=== PATIENT | female | born 1950 | race Caucasian/White ===

== ENCOUNTER 2018-05-06 10:30 | Outpatient (CLI) | payer OTHER, SELFPAY ==
[2018-05-06 11:46] LABS: Anion Gap 7.9 mmol/L (3-11); BUN 16 mg/dL (7-18); CO2 32.1 mmol/L (21.0-32.0); CREATININE 0.87 mg/dL (0.55-1.02); Calcium 9.4 mg/dL (8.5-10.1); Chloride 101 mmol/L (98-107); Cholesterol 252 mg/dL (50-200); Glucose 90 mg/dL (70-100); HDL Cholesterol 86 mg/dL (40-60); LDL CHOLESTEROL 147 mg/dL (<100); Potassium 4.2 mmol/L (3.5-5.1); Sodium 141 mmol/L (136-145); Triglyceride 48 mg/dL (30-150)
== END 2018-05-06 10:50 ==
PROVIDERS: PCP Nurse Practitioner Family; Visit Provider Nurse Practitioner Family
DX: E78.5 Hyperlipidemia, unspecified (principal); I10 Essential (primary) hypertension
CPT/HCPCS: 36415; 80048; 80061; 83721

== ENCOUNTER 2018-11-24 01:15 | Outpatient (CLI) | payer OTHER, SELFPAY ==
--- NOTE | 2018-11-24 16:05 | DI.MAMMO_ITS ---
SYMPTOM/DIAGNOSIS: SCREENING Z12.31 MAMMOGRAMS: Mammograms were interpreted according to the usual protocol including computer analysis with CAD system, tomosynthesis and C view imaging. Comparison with prior examination. No suspicious masses or microcalcifications are seen. There is no definite evidence of malignancy. Breast density category B. Asymmetric breast tissue is seen in the posterior upper right breast only on the medial lateral oblique view. This area should be further evaluated with spot compression view. Ultrasound may be indicated at that time. IMPRESSION: Category 0. Additional views of the right breast as described above. Breast density category B. . MQSA ASSESSMENT OF FINDINGS: Incomplete: Needs additional imaging evaluation. Category 0. Patient will receive a letter notifying them of these results. BI-RADS category B. There are scattered areas of fibroglandular density.
== END 2018-11-24 01:35 ==
PROVIDERS: PCP Nurse Practitioner Family; Visit Provider Nurse Practitioner Family
DX: Z12.31 Encounter for screening mammogram for malignant neoplasm of breast (principal); R92.8 Other abnormal and inconclusive findings on diagnostic imaging of breast
CPT/HCPCS: 77063; 77067

== ENCOUNTER 2018-11-25 16:23 | Outpatient (CLI) | payer OTHER, SELFPAY ==
[2018-11-27 14:04] LABS: Fecal Immunochemical Test Negative (Negative)
== END 2018-11-25 16:43 ==
PROVIDERS: PCP Nurse Practitioner Family; Visit Provider Nurse Practitioner Family
DX: I10 Essential (primary) hypertension (principal); E78.5 Hyperlipidemia, unspecified; Z12.11 Encounter for screening for malignant neoplasm of colon
CPT/HCPCS: 82274

== ENCOUNTER 2018-12-01 01:53 | Outpatient (CLI) | payer OTHER, SELFPAY ==
--- NOTE | 2018-12-01 14:00 | DI.COMBO_ITS ---
SYMPTOMS/DIAGNOSIS: F/U MAMMO, ASYMMETRIC BREAST TISSUE SEEN IN POSTERIOR UPPER RT BREAST ADDITIONAL VIEWS OF THE RIGHT BREAST AND RIGHT BREAST ULTRASOUND: Additional images are interpreted according to the usual protocol including tomosynthesis and 2D imaging. Additional views of the right breast fail to show a persistent discrete mass. A right breast ultrasound was performed. The upper inner and upper outer quadrants were evaluated sonographically. No suspicious cystic or solid masses are seen. IMPRESSION: No evidence for malignancy. Yearly mammography is recommended. Category I. Breast density B. The findings were discussed with the patient on the date of the examination. SA ASSESSMENT OF FINDINGS: Negative. Category 1. Patient will receive a letter notifying them of these results. BI-RADS category B. There are scattered areas of fibroglandular density.
== END 2018-12-01 02:13 ==
PROVIDERS: PCP Nurse Practitioner Family; Visit Provider Nurse Practitioner Family
DX: Z12.31 Encounter for screening mammogram for malignant neoplasm of breast (principal); R92.8 Other abnormal and inconclusive findings on diagnostic imaging of breast; N64.59 Other signs and symptoms in breast
CPT/HCPCS: 76642; 77063; 77067

== ENCOUNTER 2020-03-26 00:26 | Outpatient (CLI) | payer OTHER, SELFPAY ==
--- NOTE | 2020-03-26 07:15 | DI.MAMMO_ITS ---
EXAM: MAMMO SCREENING CLINICAL HISTORY: screening,Z12.39 TECHNIQUE: Bilateral full field digital CC and MLO mammographic images were obtained with 3D tomosyn thesis and utilizing computer aided detection (CAD). COMPARISON: Available for comparison. FINDINGS: Masses/Architectural Distortion: There is a focal asymmetry in the retroareolar region of the right b reast seen on the craniocaudad view. It is more prominent compared to the prior examination. Microcalcifications: No suspicious pleomorphic-type are seen. Skin Thickening/Nipple Retraction: None. IMPRESSION: 1. Focal asymmetry in the retroareolar region of the right breast on the CC view. 2. Additional evaluation with a spot compression view is recommended. Ultrasound may be indicated at that time. BI-RADS Category 0 - Assessment Incomplete: Need additional imaging evaluation Breast Density - Category B - Scattered areas of fibroglandular density Breast density category C or D implies that the patient has dense breast tissue. Dense breast tissue is very common and is not abnormal but dense breast tissue can make it harder to find cancer on a ma mmogram. Also, dense breast tissue may increase their breast cancer risk. This information about the result of the mammogram report was provided to the patient to raise their awareness. Use this report when you speak with the patient about their risks for breast cancer, which includes their family hist ory. At that time, you may recommend for more screening tests (Ultrasound or MRI) as they might be us eful based on their risk. A negative radiographic report should not delay biopsy if a dominant or clinically suspicious mass is present. Up to ten percent of cancers are not identified on mammography. A negative report may reinforce clinical impression. Adenosis and dense breasts may obscure an underlying neoplasm. False positive reports average 6 to 10%. Patient will receive a letter notifying them of these results.
== END 2020-03-26 00:46 ==
PROVIDERS: PCP Nurse Practitioner Family; Visit Provider Nurse Practitioner Family
DX: Z12.31 Encounter for screening mammogram for malignant neoplasm of breast (principal); R92.8 Other abnormal and inconclusive findings on diagnostic imaging of breast
CPT/HCPCS: 77063; 77067

== ENCOUNTER 2020-03-26 02:18 | Outpatient (CLI) | payer OTHER, SELFPAY ==
[2020-03-26 13:05] LABS: Anion Gap 6.2 mmol/L (3-11); BUN 17 mg/dL (7-18); CO2 31.8 mmol/L (21.0-32.0); CREATININE 0.81 mg/dL (0.55-1.02); Calcium 8.9 mg/dL (8.5-10.1); Calculated LDL 175 mg/dL (<100); Chloride 102 mmol/L (98-107); Cholesterol 262 mg/dL (<200); Glucose 92 mg/dL (74-106); HDL Cholesterol 67 mg/dL (40-60); Sodium 140 mmol/L (136-145); Triglyceride 104 mg/dL (<150)
== END 2020-03-26 02:38 ==
PROVIDERS: PCP Nurse Practitioner Family; Visit Provider Nurse Practitioner Family
DX: I10 Essential (primary) hypertension (principal); E78.5 Hyperlipidemia, unspecified
CPT/HCPCS: 36415; 80048; 80061

== ENCOUNTER 2020-04-03 01:18 | Outpatient (CLI) | payer OTHER, SELFPAY ==
--- NOTE | 2020-04-03 | DI.MAMMO_ITS ---
EXAM: MG MAMMO SCREEN CALL BACK UNI CLINICAL HISTORY: F/U MAMMO, FOCAL ASYMMETRY RT BREAST TECHNIQUE: Spot compression views and tomographic imaging were performed. COMPARISON: 2009 through the recent exam of 26 March 2020. FINDINGS: The breasts are composed of scattered fibroglandular densities, Breast Density category B. No suspicious masses or suspicious microcalcifications are seen. No persistent abnormality is seen on the additional views performed. The findings are consistent wit h overlying fibroglandular tissue. There has been no significant change from prior exams. IMPRESSION: BI-RADS Category 1, Negative Yearly screening mammography is recommended. Breast Density - Category B, scattered fibroglandular densities.
== END 2020-04-03 01:38 ==
PROVIDERS: PCP Nurse Practitioner Family; Visit Provider Nurse Practitioner Family
DX: R92.8 Other abnormal and inconclusive findings on diagnostic imaging of breast (principal)
CPT/HCPCS: 77063; 77067

== ENCOUNTER 2020-05-16 03:03 | Outpatient (CLI) | payer OTHER, SELFPAY ==
[2020-05-16 13:47] LABS: ALT 21 U/L (14-59); AST 18 U/L (15-37); Albumin 3.7 g/dL (3.4-5.0); Alkaline Phosphatase 105 U/L (46-116); Bilirubin, Direct 0.11 mg/dL (0.00-0.20); Bilirubin, Total 0.6 mg/dL (0.2-1.0); Total Protein 7.1 g/dL (6.4-8.2)
== END 2020-05-16 03:04 | disposition home or self-care (01) ==
LOC: LBO 03:03
PROVIDERS: PCP Nurse Practitioner Family; Visit Provider Nurse Practitioner Family
DX: Z51.81 Encounter for therapeutic drug level monitoring (principal); I10 Essential (primary) hypertension; E78.5 Hyperlipidemia, unspecified
CPT/HCPCS: 36415; 80076

== ENCOUNTER → 2021-09-11 01:58 | Outpatient (CLI) | payer MEDICARE, SELFPAY ==
--- NOTE | 2021-09-11 10:05 | DI.RAD_ITS ---
Exam(s) XR FOOT LT COMPLETE EXAM: XR FOOT LT COMPLETE CLINICAL HISTORY: Pain and swelling, L proximal phalange,ankle swelling, m25.473,effusion. TECHNIQUE: 2D digital imaging was performed. COMPARISON: No exams were available for comparison FINDINGS: 3 views There is no evidence of fracture nor diastasis of the Lisfranc joint. Hallux valgus noted. Also mul tilevel degenerative changes at the articulations between the metatarsal bases and cuneiforms and cub oid. Also degenerative changes at the articulation between the navicular and the middle-medial [place] form bones. Prominent inferior calcaneal spur is noted as is some calcification in the plantar fasci a at this level. Mild pes planus. IMPRESSION: Degenerative changes. No fractures evident. DATA REPOSITORY: RADIATION DOSE DELIVERED:
== END ==
PROVIDERS: PCP Nurse Practitioner Family; Visit Provider Family Medicine
DX: M25.472 Effusion, left ankle (principal); M25.572 Pain in left ankle and joints of left foot
CPT/HCPCS: 73630

== ENCOUNTER → 2021-09-26 02:27 | Outpatient (CLI) | payer MEDICARE, SELFPAY ==
--- NOTE | 2021-09-26 07:45 | DI.RAD_ITS ---
Exam(s) XR ANKLE LT COMPLETE EXAM: XR ANKLE LT COMPLETE CLINICAL HISTORY: Evaluate for stress fracture, ankle pain lt, M25.572 TECHNIQUE: 2D digital imaging was performed. Three views. COMPARISON: CR XR FOOT LT COMPLETE from 09/11/2021 FINDINGS: BONES: No acute fracture is present. No bony destructive lesion is seen. JOINTS:The ankle mortise is normally aligned. Prominent spurring from the malleoli and distal tibia. Prominent heel spurs. SOFT TISSUE: Prominent swelling. IMPRESSION: Degenerative changes. Heel spurs. Soft tissue swelling. No visible fracture. DATA REPOSITORY: RADIATION DOSE DELIVERED:
== END ==
PROVIDERS: PCP Nurse Practitioner Family; Visit Provider Family Medicine
DX: M19.072 Primary osteoarthritis, left ankle and foot (principal); M79.89 Other specified soft tissue disorders; M77.32 Calcaneal spur, left foot
CPT/HCPCS: 73610

== ENCOUNTER 2021-10-25 09:04 | Outpatient (CLI) | payer MEDICARE, SELFPAY ==
--- NOTE | 2021-10-25 08:45 | DI.RAD_ITS ---
Exam(s) XR ELBOW RT LIMITED EXAM: XR ELBOW RT LIMITED CLINICAL HISTORY: eval R elbow mass. TECHNIQUE: 2D digital imaging was performed. Two views. COMPARISON: No exams were available for comparison FINDINGS: BONES: No acute fracture is present. No bony destructive lesion is seen. There is a prominent spur a t the posterior olecranon at the triceps insertion. There is mild spurring at the epicondyles and co ronoid process. JOINTS: The elbow is normally aligned. No joint effusion is seen. SOFT TISSUE: There is a large coarse soft tissue calcification posterior to the proximal radius and ulna. There is no adjacent bony erosion. There are no suspicious features. IMPRESSION: Prominent olecranon spur. Posterior soft tissue calcification DATA REPOSITORY: RADIATION DOSE DELIVERED:
== END 2021-10-25 09:05 | disposition home or self-care (01) ==
LOC: DIORS 09:05
PROVIDERS: PCP Nurse Practitioner Family; Visit Provider Student in an Organized Health Care Education/Training Program
DX: R22.31 Localized swelling, mass and lump, right upper limb (principal); M25.521 Pain in right elbow; E83.59 Other disorders of calcium metabolism; G56.01 Carpal tunnel syndrome, right upper limb
CPT/HCPCS: 99203; 73070

== ENCOUNTER 2021-11-01 11:01 | Outpatient (CLI) | payer MEDICARE, SELFPAY ==
--- NOTE | 2021-11-01 10:15 | DI.RAD_ITS ---
Exam(s) XR ANKLE LT 2V EXAM: XR ANKLE LT 2V CLINICAL HISTORY: eval L posterior tibial tendon - bony flatfoot TECHNIQUE: COMPARISON: CR XR ANKLE LT COMPLETE from 09/26/2021 FINDINGS: Two weight-bearing views were obtained. The ankle mortise appears fairly well maintained except for slight cartilaginous joint space narrowing apparent on the lateral view at the tibiotalar joint. The re are moderate hypertrophic marginal osteophytes at multiple sites involving all joints of the ankle . Subtalar joints appear fairly well preserved. Note is again made of apparent flatfoot deformity. Calcaneal enthesophytes noted at Achilles and plantar fascia attachments. IMPRESSION: Degenerative changes as described above, associated with flatfoot deformity as noted on prior imaging . RADIATION DOSE DELIVERED: Total DLP
== END 2021-11-01 11:02 | disposition home or self-care (01) ==
LOC: DIORS 11:01
PROVIDERS: PCP Nurse Practitioner Family; Referring Provider Nurse Practitioner Family; Visit Provider Student in an Organized Health Care Education/Training Program
DX: M21.42 Flat foot [pes planus] (acquired), left foot (principal); S86.112A Strain of other muscle(s) and tendon(s) of posterior muscle group at lower leg level, left leg, initial encounter; X58.XXXA Exposure to other specified factors, initial encounter; M76.822 Posterior tibial tendinitis, left leg
CPT/HCPCS: 99213; 73600

== ENCOUNTER 2021-11-25 03:36 | Outpatient (CLI) | payer MEDICARE, SELFPAY ==
[2021-11-25 12:47] LABS: Source Nasal/Nares
[2021-11-25 15:10] LABS: COVID-19 PCR Negative (Negative)
== END 2021-11-25 03:37 | disposition home or self-care (01) ==
LOC: LBO 03:36
PROVIDERS: PCP Nurse Practitioner Family; Visit Provider Student in an Organized Health Care Education/Training Program
DX: Z20.822 Contact with and (suspected) exposure to COVID-19 (principal)
CPT/HCPCS: 87635

== ENCOUNTER 2021-11-27 11:12 | Day surgery (SDC) | payer MEDICARE, SELFPAY ==
--- NOTE | 2021-11-27 09:50 | W.PM.DSUDISC ---
Discharge Plan Disposition Patient Disposition: HOME Condition: Good Discharge Details Reason For Visit: Right elbow tumoral calcinosis Attending Provider: Rogelio Rocha Primary Care Provider: Pura Henry Home Meds and New Rx's Prescriptions: New acetaminophen 500 mg tablet 500 mg PO Q6H PRN (Reason: pain) Qty: 60 2RF Continued (DME) Custom Johnna Brace See Rx Instructions .Route .MEDSUPPLY Qty: 1 0RF Rx Instructions: Please fit and fabricate for a custom AFO or Johnna style brace for severe posterior tibial tendon dysfunction of the left foot/ankle. Due to habitus and edema she is unable to tolerate gpd-gug-[id number] braces. lorazepam 0.5 MG tablet 0.5 mg PO PRIOR TO FLYING Qty: 4 Rx Instructions: Take as directed before flying. amoxicillin 250 MG capsule 250 mg PO ONCE Label Comments: 04/28/16 Pt reports she take 250 mg x's 4 OD for dentists appointments as she has had a knee replacement in 2003. atorvastatin 20 mg tablet 20 mg PO DAILY Qty: 90 3RF atenolol 50 mg tablet 50 mg PO DAILY Qty: 90 3RF Rx Instructions: DX: BLOOD PRESSURE hydrochlorothiazide 25 mg tablet 25 mg PO DAILY Qty: 90 3RF Rx Instructions: DX: BLOOD PRESSURE losartan 50 mg tablet See Rx Instructions .ROUTE .COMPLEX Qty: 90 3RF Dose Instruction: TAKE 1 TABLET DAILY Rx Instructions: TAKE 1 TABLET DAILY Discontinued acetaminophen [Tylenol] 325 mg capsule 325 mg PO ONCE PRN Discharge Instructions Additional Instructions: Elbow Tumoral Calcinosis Excision Discharge Instructions Activity: Gentle motion of the elbow, hand, wrist, and fingers is okay and encouraged after the first few days, but no repetitive activities nor heavy lifting. You may apply ice. Medications: - You should take Tylenol as needed for pain - a prescription has been sent in. Dressings: - The initial surgical dressing should stay in place for 3 days. It may then be removed and kept clean and dry. You should cover with a light gauze dressing. - You may shower after 3 days and get the wound wet. Follow-up: 10 days Referrals: Rogelio Rocha MD [ [facility]YSICIAN] - Activity:: Elevate Remove Dressings/Wound Care:: Do Not Remove Shower/Bathe:: Cover Diet:: As Tolerated Discharge Orders Discharge Orders: Discharge Order (Routine); Ordered 11/27/21 Ordered By: Samara Lopez
[2021-11-27 11:24] VITALS: BP 185/82; PULSE 55; RESP 18; TEMP 36.8; O2SAT 99
[2021-11-27] MEDS: Lactated Ringers 1,000 ML 80 ML IV (12:07)
--- NOTE | 2021-11-27 13:13 | W.ANESPRE ---
General Info Date of Service Date Performed: 11/27/21 Height: 4 ft 11.75 in Weight: 102.7 kg Body Mass Index (BMI): 44.6 Surgical Procedure: Operation Date: 11/27/21 13:40 Proposed Procedure Side Surgeon p Elbow Tumoral Calcinosis Excision Right Rogelio Rocha MD Meds Allergies and Home Medications Allergies Allergy/AdvReac Type Severity Reaction Status Date / Time NSAIDS (Non-Steroidal Allergy Unknown Facial Unverified 11/27/21 11:43 Anti-Inflamma swelling lisinopril AdvReac cough Unverified 11/27/21 11:43 apples Allergy Unknown facial Uncoded 11/27/21 11:43 swelling Home Medication Medication Instructions Recorded lorazepam 0.5 mg tablet 0.5 mg PO PRIOR TO FLYING #4 tabs 10/26/15 amoxicillin 250 mg capsule 250 mg PO ONCE 04/28/16 atorvastatin 20 mg tablet 20 mg PO DAILY #90 tab-caps 04/10/21 atenolol 50 mg tablet 50 mg PO DAILY #90 tabs 04/24/21 hydrochlorothiazide 25 mg tablet 25 mg PO DAILY #90 tabs 04/24/21 losartan 50 mg tablet See Rx Instructions .Route 10/11/21 .COMPLEX #90 tabs Custom [place] Brace #1 ea 11/05/21 acetaminophen 500 mg tablet 500 mg PO Q6H PRN pain #60 tabs 11/27/21 Current Visit Medications: Current Medications Generic Name Dose Route Start Last Admin Trade Name Freq PRN Reason Stop Dose Admin Acetaminophen 650 mg 11/27/21 09:48 Acetaminophen 325 Mg Tab PO Q4H PRN PRN Hydrocodone Bitart/Acetaminophen 0 tab 11/27/21 09:48 Hydrocodone 5/Acetaminophen 325 Tab PO Q3H PRN PRN Pain Ringer's Solution 1,000 mls @ 80 mls/hr 11/27/21 06:00 11/27/21 12:07 IV 11/27/21 23:59 80 mls/hr INFUSION RYNE Administration Cefazolin Sodium/Dextrose 2 gm in 50 mls @ 100 mls/hr 11/27/21 06:00 Ancef Duplex IVPB 11/27/21 23:59 PREOP RYNE IV Miscellaneous Supplies 1 each 11/27/21 06:00 Iv Access IV 11/27/21 23:59 DIRECTED RYNE Sodium Chloride 0 ml 11/27/21 06:00 Normal Saline Flush 10 Ml Syr IV 11/27/21 23:59 PRN PRN Sodium Chloride 0 ml 11/27/21 06:00 Normal Saline 10 Ml Vial IJ 11/27/21 23:59 DIRECTED PRN Sterile Water 0 ml 11/27/21 06:00 Water,Injection,Sterile 10 Ml Vial IJ 11/27/21 23:59 DIRECTED PRN PFSH Active Problems Active Problems: Problem Status Onset Code Acquired pes planus of left foot M21.42 Posterior tibial tendon dysfunction, left M76.822 Rupture of left posterior tibialis tendon S86.112A Mass of right elbow R22.31 Carpal tunnel syndrome, right G56.01 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 Surgical History Surgical History Appendectomy (~1979) Ligation of fallopian tube (~1979) Total Knee Arthroplasty R knee. Dr. Vaughan Tobacco Smoking/Tobacco Use Status: Former Tobacco Use Alcohol Alcohol Intake: current Alcohol intake frequency: holidays/special occasions only Substance Use Substance use: Never Substance use type: does not use Vital Signs and Lab Results Vital Signs Most Recent Vital Signs in EMR: Most Recent Vital Signs Temp Pulse Resp BP Pulse Ox 36.8 C 55 L 18 185/82 H 99 11/27/21 11:24 11/27/21 11:24 11/27/21 11:24 11/27/21 11:24 11/27/21 11:24 Lab Results Blood Type / Crossmatch: No Data to Display Complete Blood Count: No Data to Display Complete Metabolic Panel: No Data to Display Liver Function Panel: No Data to Display Coagulation Panel: No Data to Display Cardiac Panel: No Data to Display Arterial Blood Gas: No Data to Display Venous Blood Gas: No Data to Display Pancreas Panel: No Data to Display Thyroid Panel: No Data to Display Infectious Disease: Coronavirus (COVID-19)(PCR) Negative (Negative) 11/25/21 12:47 Coronavirus 2019 Source Nasal/Nares 11/25/21 12:47 Blood Cultures: No Data to Display Toxicology Panel: No Data to Display Anesthesia Assessment and Plan Anesthesia History Personal History: No History of Anesthesia Complications Family History: No Family History of Anesthesia Complications Exercise Tolerance Exercise Tolerance: Metabolic Equivalents>4 Pertinent Negatives Pertinent Negatives: No Symptoms of GERD, No Major Cardiovascular Symptoms or Complaints, No Major Pulmonary Symptoms or Complaints and No History of CVA/TIA Cardiac & Pulmonary Exam Cardiac Exam: Normal S1/S2 Heart Sounds Pulmonary Exam: Clear Bilateral Breath Sounds Implantable Cardiac Device Does patient have a Pacemaker or an ICD?: No Airway Exam Known Difficult Airway: No Mallampati Class: 1 Mouth Opening: Normal (> 3cm) Thyromental Distance: Greater than 3 cm Neck Range of Motion: Full ROM Neck Circumference: Normal Teeth Condition: Normal Dentition ASA Classification ASA Score: ASA 3 Emergency Case?: No NPO Status NPO Status: NPO Clears >2 hours, Solids >8 hours Anesthesia Plan Resuscitation Status: Full Code Anesthesia Technique: General Anesthesia Airway Planned: Natural Airway Monitors Used: Standard Monitors
[2021-11-27 13:14] VITALS: BMI 44.6
[2021-11-27] MEDS: ceFAZolin 2 GM/50 ML BAG IVPB (13:46)
[2021-11-27] MEDS: Lidocaine 1% Multi-Dose W/EPI 1/100,000 50 ML VIAL (14:00)
[2021-11-27 14:20] VITALS: BP 131/63; PULSE 58; RESP 22; TEMP 36.7; O2SAT 95
--- NOTE | 2021-11-27 14:22 | W.ANESPOSTOP ---
Postoperative Evaluation Date, Time and Location Date Performed: 11/27/21 Time Performed: 14:22 Patient Location: Day Surgery Unit Vital Signs Most Recent Imported Vital Signs: Most Recent Vital Signs Temp Pulse Resp BP Pulse Ox 36.8 C 55 L 18 185/82 H 99 11/27/21 11:24 11/27/21 11:24 11/27/21 11:24 11/27/21 11:24 11/27/21 11:24 Most Recent Manually Entered Vital Signs: Adult Blood Pressure: 131/63 Heart Rate: 59 Respirations: 10 Oxygen Saturation (%): 96 Temperature (C): 36.3 C Pain Score (0-10 Scale): 0 Pain Score Most Recent Pain Score: Most Recent Pain Score Pain Level 0 11/27/21 11:24 Assessment Mental Status: Awake (Alert & Oriented to Patient Baseline) Airway and Respiratory Function: Patent airway with normal (patient baseline) respiratory exam Cardiovascular Function: Hemodynamically Stable Hydration Status: Adequately Hydrated Nausea & Vomiting: No Nausea or Vomiting Pain: Pt. Denies Any Pain Peripheral Nerve Block: Patient did not receive a nerve block
[2021-11-27 14:23] VITALS: BP 131/63; PULSE 59; RESP 10; TEMPC 36.3; O2SAT 96
[2021-11-27 14:46] VITALS: BP 144/75; PULSE 53; RESP 18; TEMP 36.5; O2SAT 98
--- NOTE | 2021-11-27 21:30 | W.PM.OP ---
Date of service: 11/27/21 Time of Service: 14:00 Operative Note Operative Note DATE OF PROCEDURE: 11/27/21 PRE-OP DIAGNOSIS: Right elbow tumoral calcinosis PROCEDURE: Excision of dystrophic calcification, right elbow SURGEON: Rogelio Rocha ANESTHESIA TYPE: General:No Airway Refer to Anesthesia Record ESTIMATED BLOOD LOSS: 0 TOURNIQUET TIME: 0 COMPLICATIONS: None Patient was transported to: same day Patient's condition: stable Indications: Suellen is a 71-year-old who continued to have some pain about her right elbow with a subcutaneous mass. It was causing pain on a daily basis and also causing dysfunction with clothing wear. X-ray showed calcium deposit in the soft tissues and the diagnosis of tumoral calcinosis was apparent. Given the persistence of her symptoms I offered excision of the dystrophic calcification. I discussed the risk of the procedure to include bleeding, infection, pain, stiffness, recurrence. Despite these risks, she elected to proceed. Findings: There is an area of dense calcification of the soft tissues. A portion of it was liquefied and a portion was more calcified. All all of this was removed. Procedure Description: Suellen was greeted in the preoperative holding area. Her identity was confirmed the correct side was identified and marked. She was taken back to the operating room and kept on the stretcher. The right elbow was prepped with ChloraPrep and draped in a standard fashion. A timeout was performed for safe surgery. Prophylactic antibiotics in the form of cefazolin were administered. The proposed surgical site was then injected with 1% lidocaine with epinephrine. The elbow was incised sharply through the skin. Immediately, the calcium was apparent. There is a small capsule around this calcium tissue. Once the capsules in size a large portion of the calcium material was liquefied and was expressed. The capsule of this calcium deposit was then excised along with some calcified portions. The wound was then thoroughly irrigated. It was both inspected as well as palpated for any remnant callus material. Once again, it was thoroughly irrigated to ensure that all calcium had been removed. There is no significant bleeding. The tissues were then closed with a 3-0 Vicryl in the deep layer and a running 4-0 Monocryl in a subcuticular fashion. The wounds reinforced with skin glue and Mepilex silver dressing followed by an Sudheer wrap. At the end the case all counts are correct. Suellen was taken back to the day surgery area in a stable condition.
--- NOTE | 2021-11-28 15:00 | W.PREOPHP ---
Assessment and Plan Assessment and plan (1) Tumoral calcinosis: Status: Acute Assessment and plan: Suellen is a 71-year-old who has tumoral calcinosis, dystrophic calcification, about the soft tissues of the dorsal right elbow. Given the dysfunction is causing as well as pain, I offered excision. I reviewed the risk of the procedure to include bleeding, infection, pain, stiffness, recurrence or incomplete resection, need for repeat procedures. Despite these risk, she elects to proceed History of Present Illness History of Present Illness Chief Complaint: Right Elbow Mass Consults Consult date: 11/28/21 Requesting physician: Rogelio Rocha Narrative: Suellen is a 71 year old female who has had a prominence to her right elbow which causes pain with palpation and has caused difficulty with daily activities. X-ray revealed calcium deposits within the soft tissues of the elbow. This is caused significant dysfunction. She has had difficulty with clothing due to this mass about the right elbow which causes pain to palpation and does wear a hole in her shirt. A diagnosis of dystrophic calcification, tumoral calcinosis, was made and excision was offered. [facility] All Active Problems Acquired pes planus of left foot (Acute) Posterior tibial tendon dysfunction, left (Acute) Rupture of left posterior tibialis tendon (Acute) Mass of right elbow (Acute) Carpal tunnel syndrome, right (Acute) Tumoral calcinosis (Acute) Right elbow Obesity (Chronic) Anxiety (Acute 04/02/12) Benign neoplasm of skin (Acute 04/02/12) Venous insufficiency of both lower extremities (Chronic) Essential hypertension (Chronic) Situational anxiety (Chronic 10/26/15) Associated with flying, PRN lorazepam Hyperlipidemia (Chronic 04/02/12) 03/2020 labs: 10-year ASCVD risk = ~12.7% (up from 9.3%) --> Surgical History Appendectomy (~1979) Ligation of fallopian tube (~1979) Total Knee Arthroplasty R knee. Dr. Vaughan Family History Mother , at age 48 (breast cancer) Breast cancer Sister Thyroid disease Maternal Aunt Breast cancer Social History Smoking/Tobacco Use Status: Former Tobacco Use tobacco type: cigarettes Quit Date: 04/06/84 Smoking risk assessment performed?: Yes Alcohol Intake: current Alcohol Intake frequency: holidays/special occasions only Drug use: Never Substance use type: does not use Caregiver/Support person: No Household members: spouse Housing: house Number of Children: 2 Communication Needs: None and Corrective Lenses Education Level: high school Do you need help understanding health information?: Rarely current occupation: Retired Pets and animals: No Sexually active: Yes Do you think of yourself as: straight/heterosexual Current gender identity: female What is your relationship status?: How often do you talk on the phone with friends or family?: decline to answer How often do you get together with friends or relatives?: decline to answer How often do you attend spiritism or christianity services?: decline to answer Do you belong to any clubs or organized social groups?: decline to answer Panel score (0-1 are the most socially isolated patients): 1 What type of physical activity do you participate in: walking Duration: 15-30 minutes/day Frequency: 3-4 times per week Lamar/Mandaen: Religion Special lamar needs: No Seatbelt use: always Water heater temp set <120 deg: Yes Working smoke detector in home: Yes Fire extinguisher in home: Yes Carbon monox detector in home: Yes Firearms in home: Yes Firearms unloaded and locked: Yes Do you feel safe at home: Yes Do you feel safe in your relationship?: Yes Meds Allergies and Home Medications Allergies Allergy/AdvReac Type Severity Reaction Status Date / Time NSAIDS (Non-Steroidal Allergy Unknown Facial Unverified 11/27/21 11:43 Anti-Inflamma swelling lisinopril AdvReac cough Unverified 11/27/21 11:43 apples Allergy Unknown facial Uncoded 11/27/21 11:43 swelling Home Medications Medication Instructions Recorded Confirmed Type lorazepam 0.5 mg tablet 0.5 mg PO PRIOR TO FLYING #4 tabs 10/26/15 11/27/21 History amoxicillin 250 mg capsule 250 mg PO ONCE 04/28/16 11/27/21 History atorvastatin 20 mg tablet 20 mg PO DAILY #90 tab-caps 04/10/21 11/27/21 Rx atenolol 50 mg tablet 50 mg PO DAILY #90 tabs 04/24/21 11/27/21 Rx hydrochlorothiazide 25 mg tablet 25 mg PO DAILY #90 tabs 04/24/21 11/27/21 Rx losartan 50 mg tablet See Rx Instructions .Route 10/11/21 11/27/21 Rx .COMPLEX #90 tabs Custom [place] Brace #1 ea 11/05/21 11/26/21 Rx acetaminophen 500 mg tablet 500 mg PO Q6H PRN pain #60 tabs 11/27/21 Rx Exam Resp Auscultation: clear to auscultation bilaterally Cardio Rate: regular rate Rhythm: regular rhythm Results Last Vital Signs Temp 36.5 C 11/27/21 14:46 Pulse 53 L 11/27/21 14:46 Resp 18 11/27/21 14:46 BP 144/75 H 11/27/21 14:46 Pulse Ox 98 11/27/21 14:46
== END 2021-11-27 15:05 | disposition home or self-care (01) ==
PROVIDERS: PCP Nurse Practitioner Family; Visit Provider Student in an Organized Health Care Education/Training Program
PROC: (CPT 24105; principal; 2021-11-27 13:30)
DX: E83.59 Other disorders of calcium metabolism (principal); E78.5 Hyperlipidemia, unspecified; I87.2 Venous insufficiency (chronic) (peripheral)
CPT/HCPCS: 24075; J0690; J1100; J1885; J2250; J2405

== ENCOUNTER → 2021-12-12 10:59 | Outpatient (BNVA) | payer MEDICARE, SELFPAY | PROVIDERS: PCP Nurse Practitioner Family; Referring Provider Nurse Practitioner Family; Visit Provider Physician Assistant | DX: Z47.89 Encounter for other orthopedic aftercare (principal); E83.59 Other disorders of calcium metabolism ==

== ENCOUNTER → 2022-01-15 01:12 | Outpatient (CLI) | payer MEDICARE, SELFPAY ==
--- NOTE | 2022-01-15 07:15 | DI.MAMMO_ITS ---
Exam(s) MAMMO SCREENING EXAM: MAMMO SCREENING CLINICAL HISTORY: screening,Z12.39 TECHNIQUE: Mammograms were interpreted according to the usual protocol including computer analysis w [employer] CAD system, tomosynthesis and C-view imaging. COMPARISON: FINDINGS: The breasts are of moderate density with fairly symmetrical distribution of fibroglandular tissue. N o dominant mass or clumped microcalcification is identified in either breast. There is a 7 millimeter in diameter well-circumscribed nodule of the left breast seen in the central portion of the breast lateral to the midline on the CC view about 8-9 cm behind the nipple. This was not present on prior examinations. Lymph node morphology cannot be confirmed. No other significant change seen. IMPRESSION: New indeterminate small left breast mass as described above. Spot compression views of the left juma st and left breast ultrasound recommended for further characterization. BI-RADS Category 0 - Assessment Incomplete: Need additional imaging evaluation Density Breast Density - Category B - Scattered areas of fibroglandular density
== END ==
PROVIDERS: PCP Nurse Practitioner Family; Visit Provider Nurse Practitioner
DX: Z12.31 Encounter for screening mammogram for malignant neoplasm of breast (principal); R92.8 Other abnormal and inconclusive findings on diagnostic imaging of breast
CPT/HCPCS: 77063; 77067

== ENCOUNTER → 2022-01-22 01:35 | Outpatient (CLI) | payer MEDICARE, SELFPAY ==
--- NOTE | 2022-01-22 13:00 | DI.MAMMO_ITS ---
Exam(s) MG MAMMO SCREEN CALL BACK UNI US BREAST LT COMPLETE EXAM: MG MAMMO SCREEN CALL BACK UNI -LEFT AND COMPLETE LEFT BREAST ULTRASOUND CLINICAL HISTORY: F/U ABNL MAMMO, 7 MM WELL-CIRCUMSCRIBED NODULE LT BR 8-9 CM BEHIND NIPPLE. TECHNIQUE: Unilateral spot mammographic images obtained with 3D tomosynthesisand utilizing computer aided detection (CAD). . Complete LEFT breast Ultrasound was also performed, including all 4 quadrants, the retroareolar regio n, and the ipsilateral axilla. COMPARISON: Prior mammograms were reviewed. This additional imaging was performed due to findings described on the recent screening mammogram of 01/15/2022. FINDINGS: DIAGNOSTIC LEFT BREAST MAMMOGRAM: Additional mammographic view performed todaydoes not dissipate the nodule. Therefore proceeded with ultrasound. COMPLETE LEFT BREAST ULTRASOUND: Ultrasound performed today reveals 2 findings. At the 2 o'clock position there is a 4 x 3 millimeter microcyst. At the 6 o'clock position there is a 3 millimeter microcyst. There are no solid lesions in all 4 quadrants of the left breast. No adenopathy in the left axilla. IMPRESSION: 1. The recently described small nodule on the mammogram persists on additional spot compression views . 2. Ultrasound reveals 2 microcysts in the left breast, 1 of which may correspond to the finding on th e mammogram. There are no solid lesions seen in the left breast on ultrasound. Appropriate follow-up , as discussed by myself with the patient today, is repeat left breast imaging in 6 months, to include repeat left breast mammogram and ultrasound. The patient was informed of these findings and recommendations prior to leaving the department today. BI-RADS Category 3 - 6 month - Probably Benign Finding: Recommend follow-up mammography in 6 months Breast Density - Category B - Scattered areas of fibroglandular density Breast density Category C or D implies that the patient has dense breast tissue. Dense breast tissue can make it harder to find cancer on a mammogram. Dense breast tissue is also associated with an incr eased risk of breast cancer. This information about the result of the mammogram report was provided to the patient to raise their awareness. Use this report when you speak with the patient about their risks for breast cancer, which includes their family history. At that time, you may recommend additional screening tests (Ultrasoun d or MRI) as these tests may add significant information. A negative radiographic report should not delay biopsy if a dominant or clinically suspicious mass is present. Up to ten percent of cancers are not identified on mammography. A negative report may reinforce clinical impression. Adenosis and dense breasts may obscure an underlying neoplasm. False positive reports average 6 to 10%. Patient will receive a letter notifying them of these results.
== END ==
PROVIDERS: PCP Nurse Practitioner Family; Visit Provider Nurse Practitioner
DX: Z12.31 Encounter for screening mammogram for malignant neoplasm of breast (principal); R92.8 Other abnormal and inconclusive findings on diagnostic imaging of breast; R92.0 Mammographic microcalcification found on diagnostic imaging of breast
CPT/HCPCS: 76642; 77063; 77067

== ENCOUNTER 2022-06-18 01:27 | Outpatient (CLI) | payer MEDICARE, SELFPAY ==
--- NOTE | 2022-06-18 08:22 | DI.CT_ITS ---
Exam(s) CT LOWER EXTREMITY LT WO EXAM: CT LOWER EXTREMITY LT WO CLINICAL HISTORY: RUPTURE TIBIAL TENDON M66.872, S/P MDCO, NC FUSION, SPRING LIG RECONSTRUCTI. TECHNIQUE: Imaging Protocol: Axial computed tomography images with coronal and sagittal reformatted images were created and reviewed. COMPARISON: CR XR ANKLE LT 2V from 11/01/2021 FINDINGS: Bones: There are postsurgical changes in the ankle and foot including a calcaneal osteotomy and candy cular and cuneiform fusion. The bones are osteopenic likely reflecting decreased use. No fracture i s identified. There is a plantar calcaneal spur. There is an enthesophyte at the Achilles insertion site. Degenerative changes are seen in the foot with spurring at the talonavicular joint in the art iculation between cuneiforms and the navicular. There also degenerative changes seen at the ankle jenifer int. Findings include joint space narrowing, bony hypertrophy and subchondral cysts. No aggressive osseous lesions are identified. Soft Tissues: There is a Milagros seen in the soft tissues of the foot. No focal fluid collection is amos ntified. IMPRESSION: 1. Postsurgical changes in the hindfoot as described above. These include calcaneal osteotomy and ta rsal fusion. 2. Osteopenia likely reflecting decreased use. 3. Degenerative changes in the foot and ankle. RADIATION DOSE DELIVERED: 329.06mGy.cm Total DLP 329.06mGy.cm Total DLP DATA REPOSITORY: All CT scans at this facility are submitted to the National Radiology Data Registry (NRDR) Dose Index Registry (DIR) with the [employer] ([employer]). RADIATION OPTIMIZATION: All CT scans at this facility use at least one of these dose optimization te chniques: automated exposure control; mA and/or kV adjustment per patient size (includes targeted exa ms where dose is matched to clinical indication); or iterative reconstruction.
== END 2022-06-18 01:47 ==
LOC: DI 01:28
PROVIDERS: PCP Nurse Practitioner Family; Visit Provider Orthopaedic Surgery
DX: M66.872 Spontaneous rupture of other tendons, left ankle and foot (principal); Z98.890 Other specified postprocedural states; Z98.1 Arthrodesis status; M85.88 Other specified disorders of bone density and structure, other site; M19.072 Primary osteoarthritis, left ankle and foot; M77.32 Calcaneal spur, left foot
CPT/HCPCS: 73700

== ENCOUNTER 2022-06-18 02:52 | Outpatient (CLI) | payer MEDICARE, SELFPAY ==
[2022-06-18 09:10] LABS: ALT 21 U/L (14-59); AST 17 U/L (15-37); Albumin 3.8 g/dL (3.4-5.0); Alkaline Phosphatase 109 U/L (46-116); Anion Gap 8.2 mmol/L (3-11); BUN 19 mg/dL (7-18); Bilirubin, Total 0.6 mg/dL (0.2-1.0); CO2 29.8 mmol/L (21.0-32.0); CREATININE 0.9 mg/dL (0.55-1.02); Calcium 9.5 mg/dL (8.5-10.1); Calculated LDL 96 mg/dL (<100); Chloride 100 mmol/L (98-107); Cholesterol 194 mg/dL (<200); Estimated GFR 68.77 (mL/min/1.73m2); Glucose 91 mg/dL (74-106); HDL Cholesterol 87 mg/dL (40-60); Potassium 3.6 mmol/L (3.5-5.1); Sodium 138 mmol/L (136-145); Total Protein 7.5 g/dL (6.4-8.2); Triglyceride 55 mg/dL (<150)
== END 2022-06-18 02:53 | disposition home or self-care (01) ==
LOC: LBO 02:52
PROVIDERS: PCP Nurse Practitioner Family; Visit Provider Nurse Practitioner Family
DX: I10 Essential (primary) hypertension (principal); E78.5 Hyperlipidemia, unspecified
CPT/HCPCS: 36415; 80053; 80061

== ENCOUNTER 2022-07-25 00:03 | Outpatient (CLI) | payer MEDICARE, SELFPAY ==
--- NOTE | 2022-07-25 08:00 | DI.MAMMO_ITS ---
Exam(s) MG MAMMO DIAGNOSTIC UNI EXAM: MG MAMMO DIAGNOSTIC UNI-LEFT CLINICAL HISTORY: f/u abnormal left mammo,6 mo f/u, r92.8,small nodule. TECHNIQUE: BOTH CC AND MLO mammographic images THE LEFT BREAST were obtained with 3D tomosynthesis t echnique and utilizing computer aided detection (CAD). Also performed spot compression CC view of the left breast COMPARISON: Prior mammograms were reviewed, the most recent being 01/15/2022. Ultrasound 01/22/2022 also reviewed. FINDINGS: A previously described nodular density is no longer seen. This implies that was most probably a cyst which has resolved. There are no new left breast mammographic findings. IMPRESSION: No radiographic evidence of malignancy in the left breast Appropriate follow-up is to keep this patient yearly mammogram schedule, with earlier imaging if a se lf detected breast change is noted.. The patient was informed of the findings and follow-up recommendations by myself prior to leaving the department today. BI-RADS Category 2 - Benign Findings Breast Density - Category B - Scattered areas of fibroglandular density Breast density Category C or D implies that the patient has dense breast tissue. Dense breast tissue can make it harder to find cancer on a mammogram. Dense breast tissue is also associated with an incr eased risk of breast cancer. This information about the result of the mammogram report was provided to the patient to raise their awareness. Use this report when you speak with the patient about their risks for breast cancer, which includes their family history. At that time, you may recommend additional screening tests (Ultrasoun d or MRI) as these tests may add significant information. A negative radiographic report should not delay biopsy if a dominant or clinically suspicious mass is present. Up to ten percent of cancers are not identified on mammography. A negative report may reinforce clinical impression. Adenosis and dense breasts may obscure an underlying neoplasm. False positive reports average 6 to 10%. Patient will receive a letter notifying them of these results.
== END 2022-07-25 00:23 ==
LOC: DI 00:03
PROVIDERS: PCP Nurse Practitioner Family; Visit Provider Nurse Practitioner
DX: R92.8 Other abnormal and inconclusive findings on diagnostic imaging of breast (principal)
CPT/HCPCS: 77061; 77065; G0279

== ENCOUNTER → 2024-04-21 08:12 | Outpatient (BNVA) | payer MEDICARE, SELFPAY | PROVIDERS: PCP Nurse Practitioner Family; Referring Provider Nurse Practitioner Family; Visit Provider Podiatrist | DX: L60.0 Ingrowing nail (principal); L60.8 Other nail disorders; M79.672 Pain in left foot | CPT/HCPCS: 11750; 99214 ==

== ENCOUNTER 2024-04-22 00:58 | Outpatient (CLI) | payer MEDICARE, SELFPAY ==
[2024-04-22 13:01] LABS: ALT 20 U/L (14-59); AST 22 U/L (15-37); Albumin 3.5 g/dL (3.4-5.0); Alkaline Phosphatase 115 U/L (46-116); Anion Gap 7.1 mmol/L (3-11); BUN 16 mg/dL (7-18); Bilirubin, Total 0.81 mg/dL (0.2-1.0); CO2 31.9 mmol/L (21.0-32.0); Calcium 9.6 mg/dL (8.5-10.1); Calculated LDL 75 mg/dL (<100); Chloride 99 mmol/L (98-107); Cholesterol 183 mg/dL (<200); Estimated GFR 59.86 (mL/min/1.73m2); Glucose 93 mg/dL (74-106); HDL Cholesterol 99 mg/dL (40-60); Sodium 138 mmol/L (136-145); Total Protein 7.4 g/dL (6.4-8.2); Triglyceride 48 mg/dL (<150)
[2024-04-22 13:25] LABS: Creatine Kinase 85 U/L (26-192)
== END 2024-04-22 00:59 | disposition home or self-care (01) ==
LOC: LBO 00:58
PROVIDERS: PCP Nurse Practitioner Family; Referring Provider Nurse Practitioner Family; Visit Provider Nurse Practitioner Family
DX: I10 Essential (primary) hypertension (principal); E78.5 Hyperlipidemia, unspecified
CPT/HCPCS: 36415; 80053; 80061; 82550

== ENCOUNTER 2024-05-11 10:42 | Outpatient (CLI) | payer MEDICARE, SELFPAY ==
[2024-05-11 11:14] LABS: Anion Gap 6.6 mmol/L (3-11); BUN 24 mg/dL (7-18); CO2 32.4 mmol/L (21.0-32.0); Calcium 9.3 mg/dL (8.5-10.1); Chloride 105 mmol/L (98-107); Estimated GFR 59.86 (mL/min/1.73m2); Glucose 97 mg/dL (74-106); Potassium 4.1 mmol/L (3.5-5.1); Sodium 144 mmol/L (136-145)
== END 2024-05-11 10:43 | disposition home or self-care (01) ==
LOC: LBO 10:42
PROVIDERS: PCP Nurse Practitioner Family; Visit Provider Nurse Practitioner Family
DX: I10 Essential (primary) hypertension (principal)
CPT/HCPCS: 36415; 80048

== ENCOUNTER → 2024-08-04 09:06 | Outpatient (BNVA) | payer MEDICARE, SELFPAY | PROVIDERS: PCP Nurse Practitioner Family; Referring Provider Nurse Practitioner Family; Visit Provider Podiatrist | DX: M79.672 Pain in left foot (principal); L60.0 Ingrowing nail; L60.3 Nail dystrophy; B35.1 Tinea unguium | CPT/HCPCS: 11720 ==

== ENCOUNTER 2024-12-22 04:15 | Outpatient (CLI) | payer MEDICARE, SELFPAY ==
--- NOTE | 2024-12-22 14:30 | DI.US_ITS ---
APPROVED REPORT EXAM: Comprehensive 2D, Doppler, and color-flow Echocardiogram Patient Location: Out-Patient Head Teller: Maciel Slade RDCS ([facility]) Indications: Peripheral edema, hypertension Other Information Study Quality: Fair. Technically limited study due to body habitus. Conclusion Normal left ventricular wall thickness and chamber size. Ejection fraction is 55 to 60%. Wall motion is normal Normal right ventricular size and function Moderately dilated left atrium. Normal right atrial size Aortic valve is sclerotic and trileaflet with mild regurgitation Mild mitral annular calcification. Trace mitral regurgitation Mild eccentric tricuspid regurgitation. Estimated right ventricular systolic pressure is 34 mmHg Wall motion Left Ventricle The left ventricle is normal size. The left ventricular systolic function is normal. The left ventricular ejection fraction is within the normal range. There is normal left ventricular wall thickness. There is normal LV segmental wall motion. The left ventricular diastolic function is normal. There is no ventricular septal defect visualized. LVEF is 55-60%. Right Ventricle The right ventricle is normal size. The right ventricular systolic function is normal. Atria Left atrium is moderately dilated. The right atrium size is normal. The interatrial septum is intact with no evidence for an atrial septal defect. Aortic Valve The aortic valve is sclerotic. Aortic valve is trileaflet. There is no aortic valvular stenosis. Mild aortic regurgitation. Mitral Valve Mild mitral annular calcification. No evidence of mitral valve stenosis. Trace mitral regurgitation. Tricuspid Valve The tricuspid valve is normal in structure. There is no tricuspid valve stenosis. Mild eccentric tricuspid regurgitation. The RVSP is 34.4 mmHg. Pulmonic Valve The pulmonary valve is normal in structure. There is no pulmonic valvular stenosis. There is no pulmonic valvular regurgitation. Great Vessels The ascending aorta is normal in size. Aortic arch is normal in caliber. IVC is normal in size and collapses >50% with inspiration. Pericardium There is no pericardial effusion. 2D Dimensions IVSD d PLAX 0.69 cm F: 0.6-1.0 Ao Root d 3.26 cm F: 2.7 - 3.3 LVPW d PLAX 0.68 cm F: 0.6 - 1.0 Ao Asc Diam d 3.16 cm F: 2.3 - 3.1 LVID d PLAX 5.25 cm F: 3.8 - 5.2 LVDs 3.75 cm F: 2.2 - 3.5 LV EF Teichholz 54.9 % FS 28.70 % LV EDV (Teich) 132.6 mL LV ESV (Teich) 59.9 mL Stroke Vol Index (Teich) 41.10 M-Mode TAPSE 2.86 cm (M/F) >1.7 Auto EF LV EDV A4C 60.7 mL LV EDV A2C 120.6 mL LV EDV BP 85.4 mL LV ESV A4C 26.1 mL LV ESV A2C 53.4 mL LV ESV BP 37.2 mL LVEF(%) A4C 57.0 % LVEF(%) A2C 55.7 % LVEF(%) BP 56.5 % LV SV A4C 34.6 ml LV SV A2C 67.1 ml LV SV BP 48.2 ml LV CO A4C 1.9 L/min LV CO A2C 3.8 L/min LV CO BP 2.9 L/min HR A4C 56.08 BPM HR A2C 56.23 BPM LV EDV Index (BP) LA Volume LA Length A4C 5.7 cm LA Length A2C 6.2 cm LA Area A4C s 15.94 cm2 LA Area A2C s 22.31 cm2 LA Vol A4C A-L 37.74 mL LA Vol A2C A-L 67.91 mL LA Vol Biplane A-L 52.8 mL LA Vol/BSA A4C A-L LA Vol/BSA A2C A-L LA Vol/BSA BP A-L 29.8 mL/m2 LA Vol A4C MOD 37.4 mL LA Vol A2C MOD 63.3 mL LA Vol BP MOD 50.1 mL RA Volume RA Area A4C 6.0 cm2 RA ESV A4C (A-L) 7.1mL RA Vol/BSA A4C A-L RA Length A4C 4.3 cm RA ESV A4C (MOD) 7.5mL LV Diastology MV E' medial 0.073 (>0.07 m/s) MV E Vmax 0.99 (0.4-1.3 m/s) MV E/E' MED 13.68 (<14) MV A Vmax 1.10 (0.4-1.3 m/s) MV E' lateral 0.100 (>0.1 m/s) E/A Ratio 0.9 MV E/E' LAT 9.90 (<14) MV E' Average 0.086 m/s MV E/E'(average) 11.49 Aortic Valve AoV Vmax 1.62 m/s LVOT Vmax 1.44 m/s AoV Peak Grad 52.3 mmHg LVOT Peak Grad 8.2 mmHg AoV Area (Vmax) 3.72 cm2 LVOT VTI 0.339 m AoV VTI 0.455 m LVOT Mean Grad 4.1 mmHg AoV Mean Kvng. 1.09 m/s LVOT SV 142.52 mL AoV Mean Grad 5.6 mmHg LVOT Diam s 2.30 cm AoV Area (VTI) 3.13 cm2 AV Regurg Peak Gr. 10.50 mmHg Velocity Ratio 0.89 AR Decel Hardee 3.5m/sec2 AR DT 1378 msec AR PHT 400 msec AR Vmax 4.85 m/s Mitral Valve MV DT 166 (160-240 msec) Pulmonary Valve PV Vmax 1.04 (0.5-1.5 m/s) RVOT Vmax 0.90 m/s PV Peak Grad 4.4 mmHg RVOT Peak Gr. 3.2 mmHg PV Mean Kvng 0.79 m/s RVOT VTI 0.267 m PV Mean Grad 2.8 mmHg RVOT Mean Gr. 2.0 mmHg Tricuspid Valve RA Pressure 3.00 mmHg TR Vmax 2.81 m/s TR Peak Grad 31.4 mmHg RVSP (TR) 34.4 mmHg
== END 2024-12-22 04:35 ==
LOC: DI 04:15
PROVIDERS: PCP Nurse Practitioner Family; Visit Provider Nurse Practitioner Family
DX: I10 Essential (primary) hypertension (principal)
CPT/HCPCS: 93306